=== PATIENT | male | born 1955 | race Hispanic/Latino ===

== ENCOUNTER 2017-06-11 18:08 | Emergency (ER) | payer SELFPAY ==
[2017-06-11 18:45] LABS: #Basophils 0.1 thou/uL (0.0-0.2); #Eosinphils 0.1 thou/uL (0.0-0.7); #Lymphocytes 2.1 thou/uL (1.20-3.40); #Monocytes 1.1 thou/uL (0.11-0.59); #Neutrophils 7.5 thou/uL (1.40-6.50); %Basophils 0.6 % (0.0-1.0); %Eosinophils 0.9 % (0.0-10.0); %Lymphocytes 19.7 % (21.0-51.0); %Monocytes 9.7 % (0.0-10.0); %Neutrophils 69.1 % (42.0-75.0); Hemoglobin 12.3 g/dL (14.0-18.0); Mean Corpuscular Hemoglobin 30.5 pg (27.0-31.0); Mean Corpuscular Volume 89.8 fl (80.0-94.0); Mean Platelet Volume 8.3 fL (7.4-10.4); Platelet Count 236 thou/uL (130-400); Red Blood Cell (RBC) Count 4.04 mill/uL (4.70-6.10); White Blood Cell (WBC) Count 10.8 thou/uL (4.8-10.8)
[2017-06-11] MEDS ORDERED: Sulfameth/Trimethoprim DS 800-160mg TAB ONE (18:55)
[2017-06-11] MEDS ORDERED: Cephalexin 500 MG CAP ONE (18:55)
[2017-06-11 19:03] LABS: ALT (SGPT) 18 U/L (8-55); AST (SGOT) 21 U/L (5-34); Albumin 4.2 g/dL (3.4-4.8); Alkaline Phosphatase 106 U/L (40-150); Anion Gap 12 mmol/L (10-20); BUN (Urea Nitrogen) 19 mg/dL (8.4-25.7); Bilirubin, Total 0.3 mg/dL (0.2-1.2); CRP (Inflammatory) 1.07 mg/dL (= or < 0.5); Calc. Creatinine Clearance 0 mL/min (70-130); Calcium 9.1 mg/dL (7.8-10.44); Carbon Dioxide 24 mmol/L (23-31); Chloride 107 mmol/L (98-107); Estimated GFR-MDRD 53; Globulin 3.4 g/dL (2.4-3.5); Glucose 184 mg/dL (80-115); Potassium 4.6 mmol/L (3.5-5.1); Protein, Total 7.6 g/dL (5.8-8.1); Sodium 138 mmol/L (136-145)
--- NOTE | 2017-06-11 19:45 | RAD ---
LEFT FOOT THREE VIEWS: 06/11/17 HISTORY: 61-year-old male with swollen left foot and redness. History of diabetes. Minimal anterior soft tissue swelling. Small calcaneal Achilles and plantar enthesophytes. Generaliz ed degenerative and osteoarthrosis changes. IMPRESSION: Degenerative and osteoarthrosis changes. Minimal soft tissue swelling. No fracture or dislocation. N o bony erosive or destructive changes that would suggest osteomyelitis. POS: [id number]
== END 2017-06-11 19:35 | disposition home or self-care (01) ==
LOC: MADERS 18:08
DX: S90.32XA Contusion of left foot, initial encounter (principal); L03.116 Cellulitis of left lower limb; E11.9 Type 2 diabetes mellitus without complications; L08.9 Local infection of the skin and subcutaneous tissue, unspecified; Z79.4 Long term (current) use of insulin; X58.XXXA Exposure to other specified factors, initial encounter
CPT/HCPCS: 36415; 36416; 80053; 85025; 86140

== ENCOUNTER 2017-06-13 13:52 | Emergency (ER) | payer SELFPAY | END 2017-06-13 14:44 | disposition home or self-care (01) | LOC: MADERS 13:52 | DX: L02.612 Cutaneous abscess of left foot (principal); E11.9 Type 2 diabetes mellitus without complications; Z79.4 Long term (current) use of insulin | CPT/HCPCS: 10060; 36416 ==

== ENCOUNTER 2021-07-25 09:35 | Outpatient (CLI) | payer SELFPAY ==
[2021-07-25 10:06] LABS: Anion Gap 13 mmol/L (10-20); BUN (Urea Nitrogen) 20 mg/dL (8.4-25.7); Calc. Creatinine Clearance 0 mL/min (70-130); Calcium 8.7 mg/dL (7.8-10.44); Carbon Dioxide 24 mmol/L (23-31); Chloride 107 mmol/L (98-107); Glucose 171 mg/dL (80-115); Potassium 4.4 mmol/L (3.5-5.1); Sodium 140 mmol/L (136-145)
== END 2021-07-25 09:36 | disposition home or self-care (01) ==
LOC: MADLAB 09:35
PROVIDERS: ATTEND Family Medicine
DX: E87.5 Hyperkalemia (principal)
CPT/HCPCS: 36415; 80048